=== PATIENT | female | born 1960 | race Caucasian/White ===

== ENCOUNTER 2016-06-13 06:26 | Day surgery (SDC) | payer BC ==
[2016-06-09 12:22] LABS: HEMATOCRIT 41.3 % (36.0-48.0); HEMOGLOBIN 14.4 g/dL (12.0-16.0)
[2016-06-09 13:27] LABS: BUN (BLOOD UREA NITROGEN) 17 MG/DL (6-23); CALCIUM, SERUM 8.9 MG/DL (8.5-10.4); CHLORIDE, SERUM 104 MMOL/L (96-112); CO2 (CARBON DIOXIDE) 33 MMOL/L (24-34); CREATININE 1.11 MG/DL (0.55-1.02); GFR AFRICAN AMERICAN 66 ML/MIN (>=60); GFR NON AFRICAN AMERICAN 57 ML/MIN (>=60); GLUCOSE, SERUM 96 MG/DL (60-99); POTASSIUM, SERUM 4.3 MMOL/L (3.5-5.3); SODIUM, SERUM 142 MMOL/L (135-148)
--- NOTE | ~2016-06-13 | OP ---
Record Of Operation [facility] [address] [place]. [address] NAME: IRENA BROOKE : 64 STATUS : [facility]#: [id number] AGE: 55 ADM/REG DATE : 06/13/16 MR#: [id number] REPORT SERV DATE: 06/15/16 DICTATED BY: AYO SANDERSON DATE: 06/15/16 REPORT STATUS : Draft TRANSCRIBED BY: ROBERT DATE: 06/15/16 DATE OF PROCEDURE: 06/13/2016 PREOPERATIVE DIAGNOSES: History of right breast cancer and right supraclavicular nodule. POSTOPERATIVE DIAGNOSES: History of right breast cancer and right supraclavicular nodule. OPERATION PERFORMED: Right excisional biopsy. SURGEON: Ayo Sanderson M.D. ANESTHESIA: MAC plus local. ESTIMATED BLOOD LOSS: Less than 10 mL. IV FLUIDS: Adequate. INDICATION FOR PROCEDURE: Ms Brooke is a 55-year-old white female, who previously had a history of breast cancer with a recurrence. She noted a palpable nodule in the supraclavicular area. Biopsy of this demonstrated what looked to be normal lymphoid tissue with some epithelial cells. The patient was very nervous, she requested excision. INTRAOPERATIVE FINDINGS: In the position of the patient in supine, I was unable to palpate a discrete nodule. This was preoperatively marked; however, when she was laid down in asleep, I could not palpate it. We made an incision over the right clavicle, could not find a discrete nodule. A portion of the subcutaneous tissue was sent for specimen. DESCRIPTION OF OPERATION: After appropriate sedation, the patient was prepped and draped in proper sterile fashion. The area had been marked in the preop area. An incision was made directly over the marked area. I could not palpate a discrete nodule. We did find a small amount of fat that seemed to be indiscrete however. This was removed. We then spent several minutes palpating over and underneath the clavicle. I could not palpate a discrete lymph node. At this point, I did not feel like we could access this nodule from this position. We closed the skin using interrupted 3-0 Vicryl sutures. Steri-Strips and dressings were then placed. The patient was taken to the recovery room in satisfactory condition. VAISHNAVI/ROBERT Ayo Sanderson M.D. / [id number] Record Of Operation [place] [id number] [address] NAME: IRENA BROOKE : [birth year] STATUS : [facility] PAT#: [id number] AGE: 55 ADM/REG DATE : 06/13/16 MR#: [id number] REPORT SERV DATE: 06/15/16 DICTATED BY: AYO SANDERSON DATE: 06/15/16 REPORT STATUS : Draft TRANSCRIBED BY: ROBERT DATE: 06/15/16 CC: Jose Luis Bailey M.D.
[~2016-06-13 06:26] MED LIST: CARD30 PO; CELEXA40 MG PO; KLONO5 PO; LEVOTHYROXIN75 MCG PO; TRAZ100 PO; WELLSR150 PO
== END 2016-06-13 11:44 | disposition home or self-care (01) ==
LOC: SDC 06:26
PROVIDERS: Specialist
PROC: 0JBD0ZZ Excision of Right Upper Arm Subcutaneous Tissue and Fascia, Open Approach (ICD-10-PCS; principal; 2016-06-13 08:15)
DX: R22.31 Localized swelling, mass and lump, right upper limb (principal); I10 Essential (primary) hypertension; E03.9 Hypothyroidism, unspecified; F41.9 Anxiety disorder, unspecified; Z85.3 Personal history of malignant neoplasm of breast; Z98.890 Other specified postprocedural states; Z79.899 Other long term (current) drug therapy
CPT/HCPCS: 80048; 85014; 85018; 88305; 93005; A9270-GY; J0690; J2250; J2405; J3010